=== PATIENT | male | born 1995 | race Asian ===

== ENCOUNTER 2018-11-25 13:22 | Emergency (ER) | payer SELFPAY ==
[2018-11-25] MEDS ORDERED: Ibuprofen 200 MG TAB ONE (13:55)
--- NOTE | 2018-11-25 14:00 | RAD ---
3 views left wrist: 11/25/2018 COMPARISON: None HISTORY: Pain FINDINGS: No fracture or dislocation. No radiopaque foreign body or subcutaneous gas. No widening of the scapholunate interval. If symptoms persist, follow-up in 7-10 days with dedicated scaphoid views advised. In IMPRESSION: No acute findings.
== END 2018-11-25 14:28 | disposition home or self-care (01) ==
LOC: ERS 13:22
DX: M25.532 Pain in left wrist (principal)